=== PATIENT | male | born 1950 | race Caucasian/White ===

== ENCOUNTER → 2017-05-15 | Outpatient (CLI) | payer MEDICARE ==
--- NOTE | 2017-05-15 08:01 | US ---
EXAMINATION TYPE: US duplex aorta DATE OF EXAM: 05/15/2017 COMPARISON: NONE CLINICAL HISTORY: Z13.6 AAA Screening. EXAM MEASUREMENTS: Abdominal Aorta: Proximal: 2.3 x 2.2cm Mid: 2.3 x 1.9cm Distal: 2.0 x 1.9cm Bifurcation: 1.2 x 1.3cm 1.2 x 1.2cm Some exam limitations due to overlying bowel gas. Visualized aorta appears wnl, no AAA. Minimal calc ific atherosclerosis is seen of the abdominal aorta. IMPRESSION: No evidence of abdominal aortic aneurysm.
== END | disposition home or self-care (01) ==
LOC: RADUSWWP 07:12
PROVIDERS: ATTEND Family Medicine
DX: Z13.6 Encounter for screening for cardiovascular disorders (principal)
CPT/HCPCS: 93979